=== PATIENT | male | born 1955 | race Caucasian/White ===

== ENCOUNTER 2017-06-19 16:15 | Emergency (ER) | payer MEDICARE ==
[2017-06-19 17:28] LABS: #Basophils 0.1 thou/uL (0.0-0.2); #Eosinphils 0.3 thou/uL (0.0-0.7); #Lymphocytes 1.8 thou/uL (1.20-3.40); #Monocytes 0.6 thou/uL (0.11-0.59); %Eosinophils 5.4 % (0.0-10.0); %Lymphocytes 31.9 % (21.0-51.0); %Monocytes 9.8 % (0.0-10.0); %Neutrophils 51.9 % (42.0-75.0); Mean Corpuscular Hemoglobin 21.9 pg (27.0-31.0); Mean Corpuscular Volume 72.9 fl (80.0-94.0); Mean Platelet Volume 9.1 fL (7.4-10.4); Platelet Count 231 thou/uL (130-400); RBC Distribution Width 15.3 % (11.5-14.5); Red Blood Cell (RBC) Count 5.46 mill/uL (4.70-6.10); White Blood Cell (WBC) Count 5.7 thou/uL (4.8-10.8)
--- NOTE | 2017-06-19 17:35 | RAD ---
ONE VIEW PELVIS 06/19/17 HISTORY: Fall. Pain. COMPARISON: 11/12/07. FINDINGS: Bony pelvis is intact. Sacroiliac joints are patent and symmetric. Sacral ala are preserved. IMPRESSION: Unremarkable one view pelvis. POS: [facility]
--- NOTE | 2017-06-19 17:36 | RAD ---
TWO VIEWS LEFT HIP 06/19/17 COMPARISON: 06/24/15. HISTORY: Fall. Pain. FINDINGS: Two views left hip demonstrates preservation of joint space. Contour of the femoral head is maintaine d. No fracture. IMPRESSION: No fracture. POS: [facility]
[2017-06-19 17:42] LABS: Anisocytosis SLIGHT = 6-15 cells (100X) (0-5/hpf); Hypochromia SLIGHT = 6-15 cells (100X) (0-5/hpf); MDiff Complete? YES; Microcytosis SLIGHT = 6-15 cells (100X) (0-5/hpf); Ovalocytes SLIGHT = 2-5 cells (100X) (0-1/hpf); PLT Morphology Comment Appears Adequate; Polychromasia SLIGHT = 2-3 cells (100X) (0-2/hpf)
[2017-06-19 17:44] LABS: ALT (SGPT) 11 U/L (8-55); AST (SGOT) 16 U/L (5-34); Alkaline Phosphatase 59 U/L (40-150); Anion Gap 11 mmol/L (10-20); BUN (Urea Nitrogen) 16 mg/dL (8.4-25.7); Bilirubin, Total 0.5 mg/dL (0.2-1.2); Calc. Creatinine Clearance 0 mL/min (70-130); Calcium 8.7 mg/dL (7.8-10.44); Carbon Dioxide 24 mmol/L (23-31); Chloride 103 mmol/L (98-107); Estimated GFR-MDRD 63; Globulin 3.2 g/dL (2.4-3.5); Glucose 85 mg/dL (80-115); Potassium 4.3 mmol/L (3.5-5.1); Protein, Total 7.2 g/dL (5.8-8.1); Sodium 134 mmol/L (136-145)
[2017-06-19 17:49] LABS: CKMB 1.1 ng/mL (0-6.6); Troponin I Less than 0.010 ng/mL (< 0.028)
--- NOTE | 2017-06-19 17:52 | RAD ---
CHEST ONE VIEW 06/19/17 HISTORY: Syncope. Possible pacemaker issues. COMPARISON: 11/04/16. FINDINGS: Portable upright chest demonstrates a single lead left sided transvenous pacemaker, with lead positio n unchanged. Normal cardiac silhouette. Atherosclerosis of the aorta. Pulmonary vessels and hilum are normal. Costophrenic angles are clear. No masses or consolidation. No pneumothorax or osseous abnorm alities. IMPRESSION: No acute cardiopulmonary process. POS: [facility]
--- NOTE | 2017-06-26 17:24 | EKG ---
Test Reason : DIAGNOSING PURPOSES Blood Pressure : / mmHG Vent. Rate : 066 BPM Atrial Rate : 064 BPM P-R Int : 000 ms QRS Dur : 166 ms QT Int : 488 ms P-R-T Axes : 000 -87 080 degrees QTc Int : 511 ms Ventricular-paced rhythm Abnormal ECG Confirmed by MAXIMINO SIMMONS, HERIBERTO Umana ([id number]), publication editor LOUIE RAMIREZ ([id number]) on 06/26/2017 5:23:39 PM Referred By: Confirmed By:HERIBERTO STANTON MD
== END 2017-06-19 20:20 | disposition home or self-care (01) ==
LOC: ERS 16:15
DX: S70.02XA Contusion of left hip, initial encounter (principal); I48.91 Unspecified atrial fibrillation; I95.9 Hypotension, unspecified; F17.220 Nicotine dependence, chewing tobacco, uncomplicated; Z79.82 Long term (current) use of aspirin; Z79.899 Other long term (current) drug therapy; W19.XXXA Unspecified fall, initial encounter
CPT/HCPCS: 36415; 71045; 72170; 80053; 82553; 83880; 84484; 85025; 93005; 99406

== ENCOUNTER 2017-07-31 15:27 | Emergency (ER) | payer MEDICARE ==
--- NOTE | 2017-07-31 16:25 | RAD ---
PORTABLE CHEST ONE VIEW 07/31/17 at 3:57 p.m. HISTORY: Chest pain. FINDINGS: Comparison made with exam of 06/19/17. Left sided pacemaker device remains in place. There is continued mild elevation of the right hemidia phragm. The heart size is normal. The lungs are expanded without focal areas of consolidation, pneumo thorax or pleural effusions. IMPRESSION: No radiographic evidence of acute cardiopulmonary process. POS: [facility]
[2017-07-31 16:34] LABS: #Eosinphils 0.2 thou/uL (0.0-0.7); #Lymphocytes 1.7 thou/uL (1.20-3.40); #Monocytes 0.5 thou/uL (0.11-0.59); #Neutrophils 3.6 thou/uL (1.40-6.50); %Basophils 0.5 % (0.0-1.0); %Eosinophils 3.8 % (0.0-10.0); %Lymphocytes 27.8 % (21.0-51.0); %Monocytes 7.9 % (0.0-10.0); %Neutrophils 59.9 % (42.0-75.0); Hemoglobin 11.9 g/dL (14.0-18.0); Mean Corpuscular Hemoglobin 21.4 pg (27.0-31.0); Mean Corpuscular Volume 71.2 fl (80.0-94.0); Mean Platelet Volume 9.3 fL (7.4-10.4); Platelet Count 204 thou/uL (130-400); RBC Distribution Width 16.1 % (11.5-14.5); Red Blood Cell (RBC) Count 5.57 mill/uL (4.70-6.10)
[2017-07-31 16:36] LABS: INR-International Normal Ratio 1.2; PTT 31.8 SEC (22.9-36.1); Prothrombin Time 15.5 SEC (12.0-14.7)
[2017-07-31 16:53] LABS: ALT (SGPT) 11 U/L (8-55); AST (SGOT) 19 U/L (5-34); Albumin 4.1 g/dL (3.4-4.8); Alkaline Phosphatase 56 U/L (40-150); Anion Gap 12 mmol/L (10-20); BUN (Urea Nitrogen) 16 mg/dL (8.4-25.7); Bilirubin, Total 0.5 mg/dL (0.2-1.2); CK (CPK) 91 U/L (30-200); Calc. Creatinine Clearance 0 mL/min (70-130); Carbon Dioxide 26 mmol/L (23-31); Chloride 103 mmol/L (98-107); Estimated GFR-MDRD 63; Globulin 3.2 g/dL (2.4-3.5); Glucose 84 mg/dL (80-115); Lipase 28 U/L (8-78); Potassium 3.6 mmol/L (3.5-5.1); Protein, Total 7.3 g/dL (5.8-8.1); Sodium 137 mmol/L (136-145)
[2017-07-31 16:57] LABS: CKMB 1.2 ng/mL (0-6.6); Troponin I Less than 0.010 ng/mL (< 0.028)
[2017-07-31 20:31] LABS: Troponin I Less than 0.010 ng/mL (< 0.028)
--- NOTE | 2017-08-07 13:12 | EKG ---
Test Reason : Blood Pressure : / mmHG Vent. Rate : 060 BPM Atrial Rate : 214 BPM P-R Int : 000 ms QRS Dur : 168 ms QT Int : 498 ms P-R-T Axes : 000 269 084 degrees QTc Int : 498 ms Poor data quality, interpretation may be adversely affected Electronic ventricular pacemaker Confirmed by EULALIA VINCENT ([id number]), newspaper photo editor SHYAM NIX ([id number]) on 08/07/2017 1:11:56 PM Referred By: Confirmed By:EULALIA VINCENT
--- NOTE | 2017-08-07 13:12 | EKG ---
Test Reason : CP Blood Pressure : / mmHG Vent. Rate : 060 BPM Atrial Rate : 037 BPM P-R Int : 000 ms QRS Dur : 162 ms QT Int : 486 ms P-R-T Axes : 000 261 080 degrees QTc Int : 486 ms Electronic ventricular pacemaker Confirmed by EULALIA VINCENT ([id number]), acquisitions editor SHYAM NIX ([id number]) on 08/07/2017 1:11:55 PM Referred By: DR VINCENT Confirmed By:EULALIA VINCENT
== END 2017-07-31 21:34 | disposition home or self-care (01) ==
LOC: ERS 15:27
DX: R07.89 Other chest pain (principal); I48.91 Unspecified atrial fibrillation; I95.9 Hypotension, unspecified; F17.220 Nicotine dependence, chewing tobacco, uncomplicated; Z79.899 Other long term (current) drug therapy; Z79.82 Long term (current) use of aspirin
CPT/HCPCS: 36415; 71045; 80053; 82553; 83690; 83880; 84484; 85025; 85610; 85730; 93005; 99406

== ENCOUNTER 2017-10-22 11:02 | Observation (INO) | payer MEDICARE ==
--- NOTE | 2017-10-22 11:25 | RAD ---
1 VIEW CHEST: Date: 10/22/17 COMPARISON: 09/27/17. HISTORY: Chest pain. FINDINGS: There is atherosclerosis of aorta. Stable left-sided transvenous pacemaker with lead terminating at r ight ventricle. Normal cardiac silhouette. Pulmonary vessels and hilum are normal. Costophrenic angle s are clear. No consolidation or mass. No pneumothorax or osseous abnormalities. IMPRESSION: No acute cardiopulmonary process. POS: [facility]
[2017-10-22 11:51] LABS: ALT (SGPT) 12 U/L (8-55); AST (SGOT) 23 U/L (5-34); Alkaline Phosphatase 53 U/L (40-150); Anion Gap 9 mmol/L (10-20); BUN (Urea Nitrogen) 16 mg/dL (8.4-25.7); Bilirubin, Total 0.5 mg/dL (0.2-1.2); CK (CPK) 81 U/L (30-200); Calc. Creatinine Clearance 0 mL/min (70-130); Carbon Dioxide 28 mmol/L (23-31); Chloride 103 mmol/L (98-107); Estimated GFR-MDRD 66; Globulin 3.3 g/dL (2.4-3.5); Glucose 73 mg/dL (80-115); Protein, Total 7.3 g/dL (5.8-8.1); Sodium 136 mmol/L (136-145)
[2017-10-22 11:54] LABS: Troponin I Less than 0.010 ng/mL (< 0.028)
[2017-10-22 11:55] LABS: #Eosinphils 0.3 thou/uL (0.0-0.7); #Lymphocytes 1.5 thou/uL (1.20-3.40); #Monocytes 0.4 thou/uL (0.11-0.59); #Neutrophils 2.2 thou/uL (1.40-6.50); %Eosinophils 5.9 % (0.0-10.0); %Lymphocytes 34.3 % (21.0-51.0); %Neutrophils 49.9 % (42.0-75.0); Anisocytosis SLIGHT = 6-15 cells (100X) (0-5/hpf); Hypochromia SLIGHT = 6-15 cells (100X) (0-5/hpf); MDiff Complete? YES; Mean Corpuscular HGB CONC 29.7 g/dL (32.0-36.0); Mean Corpuscular Hemoglobin 21.5 pg (27.0-31.0); Mean Corpuscular Volume 72.4 fl (80.0-94.0); Mean Platelet Volume 9.6 fL (7.4-10.4); Microcytosis SLIGHT = 6-15 cells (100X) (0-5/hpf); Platelet Count 214 thou/uL (130-400); RBC Distribution Width 15.4 % (11.5-14.5); Red Blood Cell (RBC) Count 5.12 mill/uL (4.70-6.10); White Blood Cell (WBC) Count 4.4 thou/uL (4.8-10.8)
[2017-10-22] MEDS ORDERED: Nitroglycerin 2% Ointment 1 INCH/1 GM Packet ONE (14:07)
[2017-10-22 14:22] LABS: Troponin I Less than 0.010 ng/mL (< 0.028)
[2017-10-22] MEDS ORDERED: Ondansetron PF 4 MG/2 ML Vial IVP PRN (16:25)
[2017-10-22] MEDS ORDERED: Ondansetron ODT 4 MG TAB SL PRN (16:25)
[2017-10-22] MEDS ORDERED: Acetaminophen 325 MG TAB PO PRN ×2 (16:25→16:29)
[2017-10-22] MEDS ORDERED: Nitroglycerin 0.4 MG TAB (25 Tab Bottle) PO PRN (16:29)
[2017-10-22 16:54] VITALS: BMI 31.1
[2017-10-22] MEDS ORDERED: hydrALAZINE 20 MG/ML VIAL SLOW IVP PRN (17:31)
[2017-10-22 17:45] LABS: Troponin I Less than 0.010 ng/mL (< 0.028)
--- NOTE | 2017-10-22 18:11 | HP ---
DATE OF ADMISSION: 10/22/2017 CHIEF COMPLAINT: Chest pain. HISTORY OF PRESENT ILLNESS: This is a 62-year-old white male with known history of pacemaker placeme nt and since then he has recently been to custodial at [place] where he was asked to pass through a magne tic chamber and his pacemaker has been giving problems since then according to him and patient has be en following up with sedimentationist, Dr. Montalvo. He happened to be there today and had a 2D echo and he said he was told by the advertising layout worker to go to the ER as patient was not feeling well while t he patient was getting the echo done. He came to the ER with persistent chest pain and he was given nitro pills which did eased up his chest pain. His initial troponins were negative and patient was b eing admitted for further evaluation. The patient was seen in the floor, he was alert and oriented, did not appear to be in acute distress at this time, but is very worried about his chest pains and he feels it is coming from the pacemaker. He has an appointment with his database software technician on Wednesday for further interrogation of his pacemaker. PAST MEDICAL HISTORY: 1. Atrial fibrillation. 2. Tachybrady syndrome, status post pacemaker in 2014. 3. Chronic back pain. 4. History of electrocution with salgado to his left side. 5. History of anxiety disorder. 6. History of orthostatic hypotension. PAST SURGICAL HISTORY: 1. Pacemaker placement in 2014. 2. Back surgery. ALLERGIES: DIGOXIN. SOCIAL HISTORY: He denies smoking. No history of alcohol, no history of illicit drug use. He lives with his in [place]. FAMILY HISTORY: Positive for stroke. Not known, which family member, but otherwise no cancers in th e family. REVIEW OF SYSTEMS: All 12 systems are reviewed with the patient thoroughly and found to be negative at this time. The following complete review of systems was negative, unless otherwise mentioned in t he HPI or below: Constitutional: Weight loss or gain, sense of well-being, ability to conduct usual activities, exerc ise tolerance. Skin/Breast: Rash, itching, changes in hair growth or loss, nail changes, breast lumps, tenderness, swelling, nipple discharge. Eyes: Vision, double vision, tearing, blind spots, pain. ENT/Mouth: Headaches (location, time of onset, duration, precipitating factors), vertigo, lightheadedness, injury. Vision, double vision, tearing, blind spots, pain, nose b leeding, colds, obstruction, discharge, dental difficulties, gingival bleeding, dentures, neck stiffn ess, pain, tenderness, masses in thyroid or other areas Cardiovascular: Precordial pain, substernal distress, palpitations, syncope, dyspnea on exertion, or thopnea, nocturnal paroxysmal dyspnea, edema, cyanosis, hypertension, heart murmurs, varicosities, ph lebitis, claudication. Respiratory: Pain, shortness of breath, wheezing, stridor, cough, hemoptysis, fever or night sweats Gastrointestinal: Poor appetite, dysphagia, indigestion, abdominal pain, heartburn, eructation, naus ea, vomiting, hematemesis, jaundice, constipation, or diarrhea, abnormal stools (cesilia-colored, tarry, bloody, greasy, foul smelling), flatulence, hemorrhoids, recent changes in bowel habits. Genitourinary: Urgency, frequency, dysuria, nocturia, hematuria, polyuria, oliguria, unusual (or preethi nge in) color of urine, stones, hesitancy, change in size of stream, dribbling, acute retention or in continence, libido, potency. Musculoskeletal: Pain, swelling, redness or heat of muscles or joints, limitation, of motion, muscular weakness, atrophy, cramps. Neurologic/Psychiatric: Convulsions, paralyses, tremor, incoordination, parasthesias, difficulties w ith memory of speech, sensory or motor disturbances, or muscular coordination (ataxia, tremor), emoti onal problems, anxiety, depression, previous psychiatric care, unusual perceptions, hallucinations. Allergy/Immunologic: Skin rash, anemia, bleeding tendency, polydipsia, polyuria, intolerance to heat or cold. HOME MEDICATIONS: Clonazepam 1 mg p.o. daily, hydrocodone 1 tablet p.o. q.6 hours, metoprolol 100 mg p.o. daily, meloxicam 7.5 mg p.o. at bedtime, aspirin 325 mg p.o. daily, and ropinirole 1 mg p.o. at bedtime. PHYSICAL EXAMINATION: VITAL SIGNS: Blood pressure is 173/102, heart rate 61, respiration rate 16, saturation 98%. GENERAL: The patient is moderately built and moderately nourished, does not appear to be in acute di stress at this time. HEENT: Atraumatic, normocephalic. PERRLA. Extraocular movements were intact. Oral mucosa is pink and moist. CARDIOVASCULAR: S1 and S2 normal. No murmurs, rubs or gallops. LUNGS: Bilateral air entry was equal, no wheezing, no crackles. ABDOMEN: Soft, nontender. No guarding or rebound tenderness. Bowel sounds normal. MUSCULOSKELETAL: No calf tenderness. No pedal edema. No joint tenderness. No joint swelling. PSYCHIATRIC: No symptoms of suicidal ideation and no signs of kal was noted. LABORATORY DATA: WBC 4.4, hemoglobin is still 11.1, hematocrit of 37.1. Sodium 133, potassium 4.0, chloride 103, bicarbonate 28, BUN 16, creatinine 1.12. ASSESSMENT AND PLAN: 1. Acute chest pain. 2. History of atrial fibrillation. 3. History of pacemaker dysfunction. 4. Moderate dehydration. PLAN: 1. Plan is to closely monitor this patient as serial troponins x2 were negative. He continues to co mplain of chest pain and patient is started on nitro paste and we will closely monitor this patient. The patient has been sent from Dr. Montalvo's office and had 2D echo. According to the patient, had an abnormal echo, but echo is not available at this time to read, so I will consult Cardiology, Dr. Montalvo for further evaluation. 2. The patient has a history of atrial fibrillation. His rhythm is normal at this time and has a pa saskia rhythm at this time. The patient is requesting for electrophysiology consultation but I would le ave this for Dr. Montalvo. 3. The patient has markedly elevated blood pressure. We will start the patient on hydralazine 10 mg q.6 hours for systolic more than 160. 4. DVT prophylaxis on Lovenox. I spent 75 minutes with this patient.
[2017-10-22] MEDS: Carvedilol 3.125 MG TAB PO SCH (20:23)
[2017-10-22] MEDS ORDERED: Fludrocortisone Acetate 0.1 MG TAB PO SCH (21:00)
[2017-10-22] MEDS ORDERED: rOPINIRole HCl 1 MG TAB PO SCH (21:00)
[2017-10-22] MEDS: HYDROcodone/Acetaminophen 5/325 mg Tablet PO PRN (22:35)
[2017-10-23 04:34] LABS: #Basophils 0.1 thou/uL (0.0-0.2); #Eosinphils 0.3 thou/uL (0.0-0.7); #Lymphocytes 2.1 thou/uL (1.20-3.40); #Monocytes 0.5 thou/uL (0.11-0.59); #Neutrophils 2.7 thou/uL (1.40-6.50); %Basophils 1.2 % (0.0-1.0); %Eosinophils 5.2 % (0.0-10.0); %Lymphocytes 36.9 % (21.0-51.0); %Monocytes 8.3 % (0.0-10.0); %Neutrophils 48.4 % (42.0-75.0); Hemoglobin 10.7 g/dL (14.0-18.0); Mean Corpuscular HGB CONC 30.3 g/dL (32.0-36.0); Mean Corpuscular Hemoglobin 21.7 pg (27.0-31.0); Mean Corpuscular Volume 71.5 fl (80.0-94.0); Platelet Count 199 thou/uL (130-400); Red Blood Cell (RBC) Count 4.95 mill/uL (4.70-6.10); White Blood Cell (WBC) Count 5.6 thou/uL (4.8-10.8)
[2017-10-23 04:47] LABS: Anion Gap 10 mmol/L (10-20); BUN (Urea Nitrogen) 14 mg/dL (8.4-25.7); Calc. Creatinine Clearance 98 mL/min (70-130); Calcium 8.7 mg/dL (7.8-10.44); Carbon Dioxide 27 mmol/L (23-31); Cardiac Risk 4.5 (Less than 4.5); Chloride 103 mmol/L (98-107); Cholesterol 140 mg/dl (< 200 Desired); Estimated GFR-MDRD 73; Glucose 87 mg/dL (80-115); HDL Cholesterol 31 mg/dL (>60 Neg Risk); LDL Cholesterol, Calculated 91 mg/dL; Potassium 3.5 mmol/L (3.5-5.1); Sodium 136 mmol/L (136-145); Triglycerides 89 mg/dL (Less than 150)
[2017-10-23] MEDS: HYDROcodone/Acetaminophen 5/325 mg Tablet PO PRN (07:14)
[2017-10-23] MEDS: Carvedilol 3.125 MG TAB PO SCH (08:06)
[2017-10-23] MEDS ORDERED: Aspirin 325 MG TAB PO SCH ×2 (09:00)
[2017-10-23] MEDS ORDERED: Enoxaparin Sodium 40 MG/0.4 ML SYRINGE SC SCH (09:00)
--- NOTE | 2017-10-23 14:16 | NM ---
CARDIAC SPECT: CLINICAL HISTORY: 62-year-old male with chest pain, atrial fibrillation. TECHNIQUE: A myocardial perfusion scan was performed using the single isotope one day protocol with technetium-9 9m sestamibi. 11 mCi were injected intravenously for the rest exam followed by 32 mCi for the stress exam. Pharmacologic stress with Adenosine was monitored and interpreted by Dr. Abraham. FINDINGS: Homogeneous tracer distribution is seen in the myocardial segments on stress and rest images without fixed or reversible defects. GATED SPECT LVEF: 56%. WALL MOTION EXAM: Normal. IMPRESSION: Normal myocardial perfusion scan. POS: [facility]
[2017-10-23] MEDS ORDERED: ADENOSINE 60 MG/20 ML VIAL ONE (15:25)
[2017-10-23 16:10] VITALS: BP 156/94; TEMP 98.3
--- NOTE | 2017-10-23 20:14 | CON ---
DATE OF CONSULTATION: 10/23/2017 REASON FOR CONSULTATION: Chest pain. HISTORY OF PRESENT ILLNESS: Mr. Capps is a pleasant 62-year-old white gentleman who comes to the [facility] for chest pain. He has been having this chest pain since around his pacemaker site since had his [facility]. He has had this discomfort since then. He has seen Dr. Montalvo since then and noted that he had normal pacer function. He went to our [facility] to get an echocardiogram on Wednesday and he complained about chest pain. He was advised that if he continued to have chest pain, he needed to come to the ER, so he did. He was admitted for rule out. He is a very poor history group tester. He is not able to tell me about any pain except he said there are 2 different types of pain. He said there is a pain around the pacemaker, but there is also pain radha t he gets a headache for him. He also mentions something about having some pressure sensation. Yest erday that got better with the nitro that he was given. He had a nuclear stress test done earlier to day and it showed no reversible ischemia and normal LV function. PAST MEDICAL HISTORY: 1. History of atrial fibrillation. 2. Tachybrady syndrome, status post pacemaker in 2014. 3. Chronic back pain. 4. History of electrocution in the past. 5. Anxiety disorder. 6. Orthostatic hypertension. PAST SURGICAL HISTORY: 1. Pacemaker placement. 2. Back surgery. OUTPATIENT MEDICATIONS: Include: 1. Vicodin p.r.n. for pain. 2. Requip. 3. Clonazepam. 4. Meloxicam. 5. Aspirin 325 a day. 6. Metoprolol 100 mg a day. 7. . 8. Florinef. 9. Albuterol inhaler. ALLERGIES: DIGOXIN. SOCIAL HISTORY: No alcohol, tobacco or drugs. FAMILY HISTORY: Noncontributory. REVIEW OF SYSTEMS: A 12-point review of systems was done and is all negative unless stated in the hi story of present illness. PHYSICAL EXAMINATION: VITAL SIGNS: Temperature 98.3, pulse 66, respiration rate 12, satting 98% on room air, blood pressur e 156/94. GENERAL: Awake, alert, oriented x3, in no distress. HEENT: Normocephalic, atraumatic. NECK: Supple. LUNGS: Clear. CARDIOVASCULAR: S1, S2, no S3, S4, no murmurs or rubs. ABDOMEN: Soft with bowel sounds. EXTREMITIES: No edema. SKIN: Warm and dry. LABORATORY WORK: Reviewed. Troponins are completely undetectable. CBC is unremarkable except for h emoglobin 11.0 down to 10.7 this morning, white count of 5.6, platelet count is normal. Nuclear stress test was done earlier today and it showed normal LV function with no reversible ischem ia. Echocardiogram done in the office on Wednesday afternoon was reviewed as well. Official report is still pending, but on my review, he has got normal LV function with no regional wall motion abnormalities. No major valvular abnormalities. There is biatrial enlargement with a pacemaker lead seen on right -sided chambers. ASSESSMENT AND PLAN: Chest pain: He has tenderness upon palpation of the pacer site. This is most likely part of the reason he is having pain. He also has pain in his chest when he gets really upset . On my evaluation, he was upset even when I walked without knowing whom I was. He did not want to give me much history. He just said you probably going to send me home, just give me my paper works a nd get me on my way from my outside. I asked him what that he expect from us and he said I do not want to agree with you. I just want to sign my paperwork and go out and wait for my to come and pick me up. I requested that he be placed on a PPI and will have him see. He has got an a ppointment with Dr. Montalvo in the next few weeks. If his chest pain continues, he may need a heart catheterization at that time. Currently, he is not having an acute coronary syndrome. It should be safe for him to go home. Thank you for letting us participate in the care of your patient. We will sign off. Please call malia metz any questions.
--- NOTE | 2017-10-25 11:11 | DIS ---
DATE OF ADMISSION: 10/22/2017 DATE OF DISCHARGE: 10/23/2017 ADMITTING DIAGNOSIS: Acute chest pain. DISCHARGE DIAGNOSIS: Acute chest pain. SECONDARY DIAGNOSES: 1. Atrial fibrillation. 2. Tachybrady syndrome, status post pacemaker in 2014. 3. Anxiety disorder, orthostatic hypotension. CONSULTANTS INVOLVED IN THE CARE: Dr. Abraham. PROCEDURES DONE DURING THIS ADMISSION: Nuclear stress test. HISTORY OF PRESENT ILLNESS AND HOSPITAL COURSE: In brief, this is a 62-year-old white male with a kn own history of a pacemaker placement and he has recently been to intermediate and he was asked to pass through the magnetic chamber and his pacemaker not been giving problems since then. According to him , the patient has been following up with a roll builder, Dr. Montalvo. He happened to be here today and had a 2D echo and he was told by the to go to the ER as the patient was not feeling well. The patient will get an echo done. He came to the ER and had persistent chest pain. The patient has been told he was alert and oriented, did not appears to be in any acute distress. The patient was s een by Cardiology and suggested for nuclear stress test the following day. Nuclear stress test was done per recommendation of the Cardiology, which showed a normal myocardial p erfusion scan. The patient was discharged to home in stable condition. PHYSICAL EXAMINATION: On date of discharge: VITAL SIGNS: Blood pressure is 156/94, heart rate is 66, respiratory rate is 12, and saturation 98%. CARDIOVASCULAR: S1 and S2 normal. No murmurs, rubs, or gallops. LUNGS: Bilateral air entry were equal. No wheezing, no crackles. ABDOMEN: Soft, nontender. No guarding. MUSCULOSKELETAL: No calf tenderness. No pedal edema. No joint tenderness, no joint swelling. DISCHARGE MEDICATIONS: 1. Albuterol inhaler. 2. Aspirin 325 mg p.o. daily. 3. Clonazepam 1 mg p.o. daily. 4. Hydrocodone. 5. Meloxicam 7.5 mg p.o. at bedtime. 6. Metoprolol 100 mg p.o. daily. 7. Ropinirole 1 mg p.o. at bedtime. DISCHARGE INSTRUCTIONS: 1. Continue activity as tolerated. Advised to follow up with his primary care physician in 1 week. Advised to follow up with primary roll builder, Dr. Eriberto Montalvo in 2 to 3 weeks. 2. Continue with a cardiac diet and continue activity as tolerated. I spent less than 35 minutes with the patient on the day of discharge.
--- NOTE | 2017-12-04 19:56 | EKG ---
Test Reason : Blood Pressure : / mmHG Vent. Rate : 061 BPM Atrial Rate : 357 BPM P-R Int : 000 ms QRS Dur : 162 ms QT Int : 502 ms P-R-T Axes : 000 -83 080 degrees QTc Int : 505 ms Electronic ventricular pacemaker Confirmed by MEHRAN CHANEY ([id number]), index editor SHYAM NIX ([id number]) on 12/04/2017 7:55:39 PM Referred By: Confirmed By:MEHRAN CHANEY
--- NOTE | 2017-12-22 08:07 | STRESS ---
Acquisition Time: 2017-10-23 10:24:37 Total Exercise Time: 00:04:00 Test Indications: CHEST PAIN Medications: Protocol: ADENOSINE Max HR: 070 BPM 44% of Pred: 158 BPM Max BP: 140/100 mmHG Max Work Load: 1.0 METS RESTING ECG: V-PACED AT 65 BPM WITH UNDERLYING ATRIAL FIBRILLATION SYMPTOMS: HEADACHE NORMAL BP RESPONSE ECTOPY: NONE ECG STRESS: NO SIGNIFICANT CHANGES INTERPRETATION: INDETERMINATE ECG/AWAIT NUCLEAR IMAGES FOR DEFINITIVE DIAGNOSIS Confirmed by LISA DALE M.D. ([id number]) on 12/22/2017 8:06:55 AM Referred By: MD Jade BYNUM Confirmed By:LISA DALE M.D.
== END 2017-10-23 17:32 | disposition home or self-care (01) ==
LOC: ERS 11:02 → 2SW 14:32
PROVIDERS: ADMIT Family Medicine; ATTEND Family Medicine
DX: R07.9 Chest pain, unspecified (principal); I48.91 Unspecified atrial fibrillation; E86.0 Dehydration; Z88.2 Allergy status to sulfonamides; Z79.82 Long term (current) use of aspirin; Z79.899 Other long term (current) drug therapy
CPT/HCPCS: 71045; 78452; 80048; 80053; 80061; 82550; 82553; 84484 ×2; 85025 ×2; 93005; 93017; 94760; 99285; A9500; G0378; 36415; J0153

== ENCOUNTER 2017-11-08 05:30 | Day surgery (SDC) | payer MEDICARE ==
[2017-11-08 06:43] LABS: #Basophils 0.1 thou/uL (0.0-0.2); #Eosinphils 0.2 thou/uL (0.0-0.7); #Monocytes 0.4 thou/uL (0.11-0.59); #Neutrophils 1.7 thou/uL (1.40-6.50); %Basophils 1.2 % (0.0-1.0); %Eosinophils 5.5 % (0.0-10.0); %Monocytes 9.9 % (0.0-10.0); %Neutrophils 38.4 % (42.0-75.0); Hemoglobin 11.6 g/dL (14.0-18.0); Mean Corpuscular HGB CONC 30.3 g/dL (32.0-36.0); Mean Corpuscular Hemoglobin 21.9 pg (27.0-31.0); Mean Corpuscular Volume 72.1 fl (80.0-94.0); Mean Platelet Volume 9.3 fL (7.4-10.4); Platelet Count 179 thou/uL (130-400); RBC Distribution Width 15.3 % (11.5-14.5); Red Blood Cell (RBC) Count 5.29 mill/uL (4.70-6.10); White Blood Cell (WBC) Count 4.4 thou/uL (4.8-10.8)
[2017-11-08] MEDS ORDERED: CEFAZOLIN/Water 2 GM/20 ML SYRINGE ONE (06:43)
[2017-11-08] MEDS ORDERED: Lidocaine 1% (PF) 30 ML VIAL ONE ×2 (06:55)
[2017-11-08 06:56] LABS: ALT (SGPT) 10 U/L (8-55); AST (SGOT) 17 U/L (5-34); Albumin 4.1 g/dL (3.4-4.8); Alkaline Phosphatase 56 U/L (40-150); Anion Gap 10 mmol/L (10-20); BUN (Urea Nitrogen) 16 mg/dL (8.4-25.7); Bilirubin, Total 0.6 mg/dL (0.2-1.2); Calc. Creatinine Clearance 0 mL/min (70-130); Carbon Dioxide 33 mmol/L (23-31); Chloride 100 mmol/L (98-107); Estimated GFR-MDRD 67; Globulin 3.3 g/dL (2.4-3.5); Glucose 79 mg/dL (80-115); Potassium 3.5 mmol/L (3.5-5.1); Protein, Total 7.4 g/dL (5.8-8.1); Sodium 139 mmol/L (136-145)
[2017-11-08] MEDS ORDERED: Fentanyl 100 MCG/2 ML VIAL ONE (07:29)
[2017-11-08] MEDS ORDERED: Propofol 500 MG/50 ML VIAL ONE (07:29)
[2017-11-08 08:00] LABS: INR-International Normal Ratio 1.2; PTT 34.9 SEC (22.9-36.1); Prothrombin Time 15.1 SEC (12.0-14.7)
[2017-11-08] MEDS ORDERED: Heparin 10,000 UNITS/1 ML VIAL ONE (09:04)
[2017-11-08] MEDS ORDERED: DOPamine 400 MG/D5W 250 ML 250 ML ONE (09:04)
[2017-11-08] MEDS ORDERED: PROPOFOL 40 ML ONE (09:25)
[2017-11-08] MEDS ORDERED: PROPOFOL 200 MG/20 ML VIAL ONE (10:35)
[2017-11-08] MEDS ORDERED: Lidocaine 1% PF 5 ML VIAL ONE (10:35)
--- NOTE | 2017-11-08 12:48 | RAD ---
PORTABLE AP CHEST XRAY: DATE: 11/08/17. HISTORY: Post pacemaker upgrade, atrial fibrillation, ablation. COMPARISON: 10/22/17. FINDINGS: There has been interval revision of the patient's left subclavian cardiac pacemaking device with a co ronary sinus lead placed in the interim when compared to the prior exam. There is no evidence of a p neumothorax or pleural effusion. Cardiac silhouette is magnified by projection. Pulmonary vasculatu re is within normal limits. The lungs are clear. Vascular calcification seen in the thoracic aorta. IMPRESSION: Interval revision of left subclavian pacemaking device as described above. No pneumothorax is visual ized. POS: [facility]
--- NOTE | 2017-11-09 08:57 | OP ---
DATE OF SERVICE: 11/08/2017 ELECTROPHYSIOLOGY STUDY AND RADIOFREQUENCY ABLATION REPORT. REFERRING PHYSICIAN: Dr. Montalvo. REASON FOR PROCEDURE: Mr. Capps is a 62-year-old man with history of chronic atrial fibrillation wi th occasional RVR, also frequent RV pacing though and dyspnea associated with that. He had prior pac ing implantation in 2014 for tachybrady syndrome by Dr. Montalvo. He is here for even ablation and f or a plan for biventricular pacemaker upgrade. DESCRIPTION OF PROCEDURE: The patient received deep sedation by Anesthesia specialist. After adequa te level of sedation achieved, the right femoral venous area was prepped, draped and anesthetized usi ng subcutaneous lidocaine. Under ultrasound guidance, the right femoral vein was accessed with a mul tipurpose needle and an 8-Bengali short sheath was introduced. Through this, a ThermoBOND SF bidirect ional catheter was advanced to the right atrium. The His bundle was located with fluoroscopy and ron ctrograms. The was measured to be 63 milliseconds. Following that, the AV maya ablatio n was performed eliminating AV maya conduction. Residual junctional escape rhythm was seen at 40 be ats per minute. Following that, the pacemaker was reprogrammed again to 50 beats per minute. Dopami ne was started to assess the patency of the block. Following that, the catheter was used to assist location of CS as well as the patency of the le ft subclavian vein. CONCLUSION: 1. Successful AV maya ablation. 2. Patent subclavian and CS veins. 3. Plan is to proceed with a biventricular pacemaker upgrade.
== END 2017-11-08 14:35 | disposition home or self-care (01) ==
LOC: CCL 05:30
PROVIDERS: ATTEND Internal Medicine Cardiovascular Disease
DX: I48.2 Chronic atrial fibrillation (principal); Z88.8 Allergy status to other drugs, medicaments and biological substances; Z79.899 Other long term (current) drug therapy; Z79.82 Long term (current) use of aspirin
CPT/HCPCS: 33225; 36005; 71045; 75820; 76942; 80053; 85025; 85610; 85730; 93005; 93650; C1769; C1882; C1900; C2630; 93010; J1265; J1644; J2001; J2704; J3010; J3490

== ENCOUNTER 2018-06-27 10:24 | Outpatient (CLI) | payer MEDICARE ==
--- NOTE | 2018-06-27 12:05 | CT ---
CT OF THE LUMBAR SPINE: Date: 06/27/18 COMPARISON: None. HISTORY: M51.27 other intervertebral disc displacement, lumbosacral region. TECHNIQUE: Axial CT imaging at 2 mm intervals through the lumbar spine without contrast. Coronal and sagittal re formatted imaging obtained. FINDINGS: Evaluation for central canal and/or neural foraminal stenosis is limited on routine CT exam. Imaged r etroperitoneal structures appear grossly unremarkable. There is mild atherosclerotic calcification of the pelvic arterial structures, left greater than right. Sagittal imaging demonstrates no significant anterolisthesis or retrolisthesis. There is mild anterol isthesis of L4 on L5 measuring in the 3-4 mm range. T12-L1: No osseous cause of significant central canal or neural foraminal stenosis. L1-2: Mild bilateral facet hypertrophy and mild disc space narrowing. No osseous cause of significan t central canal or neural foraminal stenosis. L2-3: There is disc space narrowing and mild bilateral facet hypertrophy. No significant central can al or neural foraminal stenosis on the basis of an osseous abnormality. There is an area of irregular ity involving the anterior aspect of the superior end plate of the L3 vertebral body suggesting a rem ote fracture or a prominent Schmorl's node. L3-4: Bilateral facet hypertrophy and hypertrophy of the ligamentum flavum. No osseous cause of sign ificant central canal or neural foraminal stenosis. Mild bilateral facet hypertrophy with probable mi ld bilateral neural foraminal stenosis. L4-5: Disc space narrowing and mild disc bulge suspected. Prominent bilateral facet hypertrophy, lef t greater than right. Moderate central canal stenosis suspected. Moderate bilateral neural foraminal stenosis suspected as well, left greater than right. L5-S1: Disc space narrowing and vacuum disc formation noted. Mild posterior osteophyte formation, bi lateral facet hypertrophy, right greater than left. Moderate right neural foraminal stenosis. No sign ificant central canal or left neural foraminal stenosis. No acute fracture or dislocation. No worriso me lytic or blastic bone lesion. IMPRESSION: Multilevel degenerative change noted within the lumbar spine, most prominent at L4-5 and L5-S1 as daria cribed above. POS: [facility]
--- NOTE | 2018-06-27 12:19 | CT ---
CERVICAL SPINE CT WITHOUT CONTRAST: DATE: 06/27/2018. COMPARISON: 08/06/2014. HISTORY: Intervertebral disk displacement. TECHNIQUE: Axial CT imaging at 2 mm intervals from the skull base through the lung apices without contrast. Cor onal and sagittal reformatted imaging obtained. FINDINGS: Evaluation for central canal and/or neural foraminal stenosis is limited on routine CT. The C1 ring is intact. There is moderate degenerative change at the atlantoaxial interspace, stable. The craniocervical junction and cervicothoracic junction are intact. No prevertebral soft tissue s welling. No anterolisthesis or retrolisthesis is noted. C2-3: Mild bilateral uncovertebral osteophyte formation, right greater than left. No osseous cause of significant central canal or neural foraminal stenosis. C3-4: Mild disk space narrowing. Mild bilateral uncovertebral osteophyte formation, right greater t guidry left. Mild right neural foraminal stenosis. No significant central canal or left neural foramin al stenosis. C4-5: There is disk space narrowing and degenerative end plate change with posterior osteophyte form ation, worsened when compared to the prior exam. Moderate central canal stenosis is suspected with a probable superimposed disk bulge. Bilateral facet and uncovertebral osteophyte formation are presen t with moderate bilateral neural foraminal stenosis, left greater than right, slightly worsened when compared to prior imaging. C5-6: There is disk space narrowing. There is bilateral uncovertebral osteophyte formation, left gr eater than right. There is moderate left neural foraminal stenosis. There is a questionable disk bu lge with at least mild central canal stenosis. C7-T1: No osseous cause of significant central canal and neural foraminal stenosis. No acute osseous abnormality. No prevertebral soft tissue swelling. IMPRESSION: Multilevel degenerative change noted within the cervical spine as detailed above. More definitive as sessment for central canal and/or neural foraminal stenosis could be performed via MRI or CT myelogra m. POS: [facility]
== END 2018-06-27 10:25 | disposition home or self-care (01) ==
LOC: SCSCT 10:24
PROVIDERS: ATTEND Psychiatry & Neurology Neurology
DX: M51.27 Other intervertebral disc displacement, lumbosacral region (principal); M47.812 Spondylosis without myelopathy or radiculopathy, cervical region; M47.816 Spondylosis without myelopathy or radiculopathy, lumbar region; M47.817 Spondylosis without myelopathy or radiculopathy, lumbosacral region
CPT/HCPCS: 72125; 72131

== ENCOUNTER 2018-08-25 07:36 | Day surgery (SDC) | payer MEDICARE ==
[2018-08-24 11:43] VITALS: BMI 26.2
--- NOTE | 2018-08-25 08:40 | RAD ---
FEXAM:Cervical spine 3 views HISTORY: Neck pain COMPARISON: None FINDINGS:The vertebral bodies are normal in height and there is marked disc narrowing at C5-6 and mil d disc narrowing at C6-7. No abnormal motion in flexion or extension. Degenerative facet changes are present. IMPRESSION:Arthritic changes of the lower cervical spine.
--- NOTE | 2018-08-25 08:48 | RAD ---
3 VIEWS LUMBAR SPINE INCLUDING LATERAL AND FLEXION AND EXTENSION VIEWS: Date: 08/25/18 HISTORY: Intervertebral disc displacement. FINDINGS: Three views lumbar spine are obtained and compared to previous exam from 11/12/07. There is Grade I anterolisthesis of L4 on L5. This degree of anterolisthesis increases on flexion vie ws. On extension views, the degree of anterolisthesis is approximately 3.0 mm. This increases to 9.5 mm on the flexion view. There is disc space height loss at the L4-5 disc space. Findings suggest L4-5 facet instability. Vacuum changes seen at L5-S1. There is irregularity and partial collapse of the superior anterior aspect of the L3 vertebral body. This was seen on the patient's previous radiograph from 11/12/07. This is not significantly changed. IMPRESSION: Instability and anterolisthesis of L4 on L5. POS: [facility]
--- NOTE | 2018-08-25 09:47 | RAD ---
FCT ABDOMEN AND PELVIS WITH CONTRAST COMPARISON: CLINICAL INDICATION: History of malignancy, metastases, pain FINDINGS: Lung bases: Prominent abnormality of the imaged right lower chest, correlate with recent CT chest exa m from previous day for intrathoracic pathology details. Solid abdominal organs: Distention of gallbladder. Small masses are seen within the bilateral adrenal glands. Bowel: No acute bowel distention or inflammation. Vasculature: Scattered vascular disease. Lymph nodes: Multiple enlarged retroperitoneal lymph nodes. Small, 1.1 cm, soft tissue nodule is seen at the posterior left abdomen, posterior to the left pararenal space, likely represents a metastatic deposit. Free fluid/free air. No free air. Mild pelvic ascites is present Urinary bladder: Unremarkable. Osseous structures: Diffuse osseous metastatic disease of the visualized spine as well as within the pelvic osseous structures. There are predominantly lytic osseous lesions demonstrated. Findings have depicted on preceding exams. IMPRESSION: Diffuse metastatic disease primarily involving osseous structures; in addition there are abnormal lymph nodes as well as bilateral adrenal masses of the abdomen. Incompletely assessed disease of the lower chest has been documented on preceding CT thorax.
--- NOTE | 2018-08-25 10:04 | CT ---
FCT cervical myelogram INDICATION: History of cervical stenosis TECHNIQUE: CT images were obtained of the cervical spine following intrathecal administration of a Is ovue solution. Please see the separate dictated remodeling or for details concerning the injection te chnique. FINDINGS: The prevertebral soft tissues appear within normal limits. The lung apices are clear. There is moderate disc degenerative disease at C4-5 and C5-6. Craniocervical junction appears within normal limits. At C2-C3, there is no appreciable osseous central canal or neural foraminal narrowing. There is moder ate left facet joint degenerative change. At C3-4, there is uncovertebral atrophy and [id number] facet joint degenerative changes inducin g moderate right and mild left osseous neural foraminal narrowing. At C4-5, there is disc osteophyte complex with uncovertebral hypertrophy and facet joint degenerative changes inducing mild bilateral osseous neural foraminal narrowing and mild central canal narrowing. At C5-6, there is a broad-based disc osteophyte complex and facet hypertrophy but no appreciable cent ral canal or neural foraminal narrowing. At C6-7, there is uncovertebral hypertrophy and facet joint degenerative change but no appreciable ce ntral canal or neural foraminal narrowing. At C7-T1, there is no appreciable central canal or neural foraminal narrowing. IMPRESSION: 1. Mild spondylosis of the cervical spine most pronounced at C4-5, were there is a central canal and neural foraminal narrowing. 2. Moderate right and mild left neural foraminal narrowing at C3-4.
--- NOTE | 2018-08-25 10:31 | CT ---
FCT lumbar myelogram: INDICATION: Disc displacement. TECHNIQUE: Multiple CT images were obtained of the lumbar spine following intrathecal administration of an Isovue solution. Please see the separately dictated lumbar myelogram for details concerning the injection technique. COMPARISON: No MRI or myelogram comparisons are available. There was a recent CT of the lumbar spine performed on 06/27/2018 which was reviewed. FINDINGS: There is a 4 mm non obstructing calculus involving the inferior pole of the left kidney. There are ad ditional sub-4 mm calculi involving the right and left kidney. The visualized retroperitoneum and par avertebral soft tissues appear within normal limits. A few shotty appearing lymph nodes are seen with in the retroperitoneum, none of which are pathologically enlarged. There is a limbus type vertebra involving L3 which is stable to the most recent comparison CT evaluat ion. There is mild degenerative arthrosis involving both SI joints. There is a broad-based disc osteophyte complex and facet hypertrophy at L5-S1 inducing moderate right and mild left neural foraminal narrowing. At L4-5, there is advanced facet joint degenerative change and grade 1 anterolisthesis. Anterolisthes is in addition to a broad-based disc bulge and facet hypertrophy induces moderate central canal narro wing with moderate to severe bilateral neural foraminal narrowing. At L3-4, there is a broad-based bulge with facet hypertrophy inducing moderate bilateral neural destinee inal narrowing. At L2-3, there is mild broad-based bulge with facet hypertrophy producing mild bilateral neural destinee inal narrowing. At L1-L2, there is mild broad-based bulge with mild bilateral neural foraminal narrowing. At T12-L1, there is no appreciable central canal or neural foraminal narrowing. IMPRESSION: 1. Multilevel spondylosis of the lumbar spine with moderate central canal narrowing and moderate to s evere bilateral neural foraminal narrowing at L4-5. There is grade 1 anterolisthesis of L4 and L5 lik royer related to the patient's advanced facet joint degenerative change. 2. Advanced disc degenerative disease at L5-S1 with moderate right and mild left neural foraminal estiven rowing. 3. Moderate bilateral neural foraminal narrowing at L3-4. 4. Mild bilateral neural foraminal narrowing at L1-2 and L2-3. 5. Bilateral nephrolithiasis. Transcribed Date/Time: 08/25/2018 10:56 AM
== END 2018-08-25 10:25 | disposition home or self-care (01) ==
LOC: RAD 07:36
PROVIDERS: ATTEND Neurological Surgery
PROC: B01B1ZZ Fluoroscopy of Spinal Cord using Low Osmolar Contrast (ICD-10-PCS; principal; 2018-08-25)
DX: M47.16 Other spondylosis with myelopathy, lumbar region (principal); M47.12 Other spondylosis with myelopathy, cervical region; M51.37 Other intervertebral disc degeneration, lumbosacral region; M48.07 Spinal stenosis, lumbosacral region; M48.02 Spinal stenosis, cervical region; N20.0 Calculus of kidney; I10 Essential (primary) hypertension; F17.200 Nicotine dependence, unspecified, uncomplicated; Z86.73 Personal history of transient ischemic attack (TIA), and cerebral infarction without residual deficits; Z79.82 Long term (current) use of aspirin; Z79.899 Other long term (current) drug therapy; Z88.8 Allergy status to other drugs, medicaments and biological substances; Z95.0 Presence of cardiac pacemaker
CPT/HCPCS: 62305; 72040; 72100; 72126; 72132

== ENCOUNTER 2019-07-11 06:27 | Observation (INO) | payer MEDICARE ==
[2019-07-11] MEDS ORDERED: Albuterol Sulfate 2.5 mg/3 ml Neb ONE (06:42)
[2019-07-11] MEDS ORDERED: Albuterol Sulfate 2.5 mg/0.5 ml Neb ONE ×2 (06:42)
[2019-07-11 07:00] LABS: #Basophils 0.1 thou/uL (0.0-0.2); #Eosinphils 0.3 thou/uL (0.0-0.7); #Lymphocytes 1.7 thou/uL (1.20-3.40); #Monocytes 0.5 thou/uL (0.11-0.59); #Neutrophils 2.1 thou/uL (1.40-6.50); %Basophils 1.2 % (0.0-1.0); %Eosinophils 6.5 % (0.0-10.0); %Lymphocytes 36.5 % (21.0-51.0); %Neutrophils 44.9 % (42.0-75.0); Hemoglobin 10.3 g/dL (14.0-18.0); Mean Corpuscular HGB CONC 29.7 g/dL (32.0-36.0); Mean Corpuscular Volume 70.5 fL (78.0-98.0); Mean Platelet Volume 9.8 fL (7.4-10.4); Platelet Count 208 thou/uL (130-400); RBC Distribution Width 15.8 % (11.5-14.5); Red Blood Cell (RBC) Count 4.93 mill/uL (4.70-6.10); White Blood Cell (WBC) Count 4.8 thou/uL (4.8-10.8)
[2019-07-11 07:19] LABS: ALT (SGPT) 11 U/L (8-55); AST (SGOT) 17 U/L (5-34); Albumin 3.8 g/dL (3.4-4.8); Alkaline Phosphatase 60 U/L (40-110); Anion Gap 9 mmol/L (10-20); BUN (Urea Nitrogen) 14 mg/dL (8.4-25.7); Bilirubin, Total 0.6 mg/dL (0.2-1.2); CK (CPK) 61 U/L (30-200); Calc. Creatinine Clearance 0 mL/min (70-130); Calcium 8.5 mg/dL (7.8-10.44); Carbon Dioxide 31 mmol/L (23-31); Chloride 102 mmol/L (98-107); Estimated GFR-MDRD 63; Globulin 2.8 g/dL (2.4-3.5); Glucose 85 mg/dL (80-115); Lipase 26 U/L (8-78); Magnesium 2.1 mg/dL (1.6-2.6); Protein, Total 6.6 g/dL (5.8-8.1); Sodium 139 mmol/L (136-145)
[2019-07-11 07:24] LABS: Hypochromia SLIGHT = 6-15 cells (100X) (0-5/hpf); MDiff Complete? YES; Microcytosis SLIGHT = 6-15 cells (100X) (0-5/hpf); Platelet Morphology Comment Appears Adequate; Polychromasia SLIGHT = 2-3 cells (100X) (0-2/hpf)
--- NOTE | 2019-07-11 07:44 | RAD ---
CHEST 1 VIEW: HISTORY: Chest pain. COMPARISON: 06/05/2018. FINDINGS: Left ICD. Heart size is normal. The lungs are clear. IMPRESSION: No significant acute intrathoracic disease. Stable from prior study. POS: [facility]
[2019-07-11 10:44] VITALS: BMI 31.2
[2019-07-11 11:19] LABS: Troponin I Less than 0.010 ng/mL (< 0.028)
[2019-07-11] MEDS ORDERED: Acetaminophen 325 MG TAB PO PRN (12:38)
[2019-07-11] MEDS ORDERED: HYDROcodone/Acetaminophen 7.5/325 mg Tablet PO PRN (12:41)
[2019-07-11] MEDS ORDERED: PROVENTIL INHALER 6.7 G (200 INHALATIONS) INH PRN (12:41)
[2019-07-11] MEDS: Heparin 5,000 UNITS/ML VIAL SC SCH ×2 (14:30→20:39)
[2019-07-11 14:55] LABS: Amphetamine Not Detected (NotDetected); Barbiturates Screen Not Detected (NotDetected); Benzodiazepine Screen Not Detected (NotDetected); Cocaine Metabolite Screen Not Detected (NotDetected); Medtox Control Line Valid? VALID (VALID); Medtox Reader # READER 4; Methadone Not Detected (NotDetected); Methamphetamine Not Detected (NotDetected); Opiate Screen Not Detected (NotDetected); Oxycodone Screen Not Detected (NotDetected); Phencyclidine (PCP) Not Detected (NotDetected); THC/Cannabinoid Screen Not Detected (NotDetected); Tricyclic Screen Not Detected (NotDetected)
[2019-07-11 15:51] LABS: Troponin I 0.016 ng/mL (< 0.028)
--- NOTE | 2019-07-11 19:07 | PDOC.HHP ---
Hospitalist HPI - History of Present Illness chest pain History of Present Illness: 63yo M w/ MHx of persistent atrial fibrillation and tachybrady syndrome s/p pacemaker placement (2015, recent exchange) presents with chest pain. Chest pain woke him up earlier this morning, lancinating-like, left thorax and around to left back, constant, not associated with activity and not relieved by rest. Had similar episodes in the past presentation and blames it on the pacemaker swelling up and causing the pain. Has no other complaints and denies fever, chills, night sweats, dyspnea, orthopnea, PND, trauma to chest or back, skin lesion or rashes, recent travel or sick contacts. ED Course: In the ED, received nitroglycerin (overall x 3) as well as initial ACS treatment and workup, and was admitted for further observation. Hospitalist ROS - Review of Systems Constitutional: denies: fever, chills, sweats, weakness, malaise, other Respiratory: reports: pleuritic pain. denies: cough, dry, shortness of breath, hemoptysis, SOB with excertion, sputum, wheezing, other Cardiovascular: reports: chest pain. denies: palpitations, orthopnea, paroxysmal noc. dyspnea, edema, light headedness Gastrointestinal: denies: nausea, vomiting, abdominal pain, diarrhea, constipation, melena, hematochezia Genitourinary: denies: dysuria, frequency, incontinence, hematuria, retention, other Musculoskeletal: reports: neck pain, shoulder pain, back pain Skin: denies: rash, lesions Neurological: denies: weakness, numbness, incoordination, change in speech, confusion - Medication Medications: Active Medications Generic Name Dose Route Start Last Admin Trade Name Freq PRN Reason Stop Dose Admin Heparin Sodium (Porcine) 5,000 units 07/11/19 15:00 07/11/19 14:30 Heparin SC Not Given TID [facility] Hospitalist History - Past Medical History Cardiac: reports: AFIB, HTN, Hyperlipidemia (PAST MEDICAL HISTORY: 1. History of atrial fibrillation. 2. Tachybrady syndrome, status post pacemaker in 2014. 3. Chronic back pain. 4. History of electrocution in the past. 5. Anxiety disorder. 6. Orthostatic hypertension. PAST SURGICAL HISTORY: 1. Pacemaker placement. 2. Back surgery. OUTPATIENT MEDICATIONS: Include: 1. Vicodin p.r.n. for pain. 2. Requip. 3. Clonazepam. 4. Meloxicam. 5. Aspirin 325 a day. 6. Metoprolol 100 mg a day.8. Florinef. 9. Albuterol inhaler. ALLERGIES: DIGOXIN. gabapentin (rash) SOCIAL HISTORY: No alcohol, tobacco or drugs. FAMILY HISTORY: Noncontributory.) - Exam General Appearance: awake alert, ill appearing General - other findings: appears erratic and agitated Eye: PERRL, anicteric sclera ENT: normocephalic atraumatic Neck: no JVD Heart: RRR, no murmur, no gallops, normal peripheral pulses Heart - other findings: left upper thorax pacemaker; no overlying erythema or apparent swelling Respiratory: CTAB, no wheezes, no rales, no ronchi, normal chest expansion, no tachypnea, normal percussion Gastrointestinal: soft, non-tender, non-distended, normal bowel sounds Extremities: no edema Neurological: cranial nerve grossly intact, no weakness, no focal deficits, no new deficit. negative: facial droop, hemiplegia, speech deficit Musculoskeletal: normal tone, normal strength Psychiatric: A&O x 3, flat affect. negative: normal behavior Psychiatric - other findings: agitated, erratic Hospitalist Results - Labs Result Diagrams: 07/11/19 06:46 07/11/19 06:46 Lab results: WBC 4.8 thou/uL (4.8-10.8) 07/11/19 06:46 Hgb 10.3 g/dL (14.0-18.0) L 07/11/19 06:46 Hct 34.7 % (42.0-52.0) L 07/11/19 06:46 MCV 70.5 fL (78.0-98.0) L 07/11/19 06:46 Plt Count 208 thou/uL (130-400) 07/11/19 06:46 Neutrophils % 44.9 % (42.0-75.0) 07/11/19 06:46 Sodium 139 mmol/L (136-145) 07/11/19 06:46 Potassium 3.0 mmol/L (3.5-5.1) L 07/11/19 06:46 Chloride 102 mmol/L (98-107) 07/11/19 06:46 Carbon Dioxide 31 mmol/L (23-31) 07/11/19 06:46 BUN 14 mg/dL (8.4-25.7) 07/11/19 06:46 Creatinine 1.17 mg/dL (0.7-1.3) 07/11/19 06:46 Glucose 85 mg/dL (80-115) 07/11/19 06:46 Calcium 8.5 mg/dL (7.8-10.44) 07/11/19 06:46 Total Bilirubin 0.6 mg/dL (0.2-1.2) 07/11/19 06:46 AST 17 U/L (5-34) 07/11/19 06:46 ALT 11 U/L (8-55) 07/11/19 06:46 Alkaline Phosphatase 60 U/L (40-110) 07/11/19 06:46 Creatine Kinase 61 U/L (30-200) 07/11/19 06:46 Troponin I 0.016 ng/mL (< 0.028) 07/11/19 13:16 Serum Total Protein 6.6 g/dL (5.8-8.1) 07/11/19 06:46 Albumin 3.8 g/dL (3.4-4.8) 07/11/19 06:46 Lipase 26 U/L (8-78) 07/11/19 06:46 - EKG Interpretation EKG: paced rhythm with no signs of acute ischemia Hospitalist H&P A/P - Problem (1) Neuropathic pain of chest Code(s): M79.2 - NEURALGIA AND NEURITIS, UNSPECIFIED Status: Acute (2) Tachy-dario syndrome Code(s): I49.5 - SICK SINUS SYNDROME Status: Acute (3) Atrial fibrillation Code(s): I48.91 - UNSPECIFIED ATRIAL FIBRILLATION Status: Chronic - Plan Plan: * pain reproducible, lancinating, more consistent with neuropathic rather than nociceptive pain * patient jumps off bed due to perceived severe tenderness in upper left thorax , upper left back, upper abdominal quadrant; yet appears to be in no pain when laying back over left upper back * no overlying skin lesion or rash; not dermatomal distribution and patient isn' t immunocompromised * may have had neuropathy as a result of insertion of pacemaker * start pregabalin (had rash in response to gabapentin, nurse requested to monitor though unknown if pregabalin and gabapentin cross react) * US left upper thorax for possible soft tissue abnormality in pacemaker area * continue home norco * for atrial fibrillation, resumed home medications * * full code * GI PPx : no Ix * DVT PPx: enoxeparin
[2019-07-11] MEDS ORDERED: Pregabalin 25 MG CAP PO SCH (19:15)
[2019-07-11] MEDS: Potassium Chloride 20 MEQ TAB PO SCH ×2 (20:35→23:31)
[2019-07-11] MEDS: Pregabalin 25 MG CAP PO SCH (20:36)
[2019-07-11] MEDS ORDERED: rOPINIRole HCl 1 MG TAB PO SCH (21:00)
[2019-07-11] MEDS ORDERED: Fludrocortisone Acetate 0.1 MG TAB PO SCH (21:00)
[2019-07-11] MEDS ORDERED: clonazePAM 1 MG TAB PO SCH (21:00)
[2019-07-11] MEDS ORDERED: Meloxicam 7.5 MG TAB PO SCH (21:00)
[2019-07-12 05:39] LABS: Anion Gap 8 mmol/L (10-20); BUN (Urea Nitrogen) 10 mg/dL (8.4-25.7); Calc. Creatinine Clearance 89 mL/min (70-130); Calcium 8.6 mg/dL (7.8-10.44); Carbon Dioxide 30 mmol/L (23-31); Chloride 104 mmol/L (98-107); Estimated GFR-MDRD 71; Glucose 87 mg/dL (80-115); Magnesium 2.1 mg/dL (1.6-2.6); Potassium 3.6 mmol/L (3.5-5.1); Sodium 138 mmol/L (136-145)
[2019-07-12 08:18] VITALS: BP 133/84; TEMP 97.9
--- NOTE | 2019-07-12 08:27 | ULT ---
SOFT TISSUE CHEST WALL ULTRASOUND: HISTORY: Stabbing pain at the site of the pacemaker. FINDINGS: Imaging was evaluated around the pacemaker site. There was no evidence for solid mass. No abnormal fluid collection. IMPRESSION: No abnormal fluid collection or solid mass in and around the region of the pacemaker site where the p atient complains of chest pain. Depending upon concern, additional imaging with CT scan might be con sidered. POS: [facility]
[2019-07-12] MEDS ORDERED: Aspirin 325 MG TAB PO SCH (09:00)
[2019-07-12] MEDS: Heparin 5,000 UNITS/ML VIAL SC SCH (09:02)
[2019-07-12] MEDS: Pregabalin 25 MG CAP PO SCH (10:20)
--- NOTE | 2019-07-13 21:09 | DIS ---
DATE OF ADMISSION: 07/11/2019 DATE OF DISCHARGE: 07/12/2019 HISTORY OF PRESENT ILLNESS: Mr. Capps is a 63-year-old male with a medical history of persistent atrial fibrillation and tachy-dario syndrome status post pacemaker placement with pacemaker placement in 2014 with a recent exchange, who presented with chest pain. He was diagnosed with neuropathic pain, likely due to the surgical insertion of the pacemaker and was started on pregabalin overnight. His pain completely resolved. He was discharged home with pregabalin as well as followup appointment with his primary care physician. On the day of discharge, he was hemodynamically stable and feeling well. PHYSICAL EXAMINATION: GENERAL: He was in no apparent distress. Alert and oriented x3, whereas during presentation here apppeared erratic and agitated. EYE: Pale, anicteric sclera. HEART: Regular rate and rhythm. No murmur. No gallops. Normal peripheral pulses. Left upper thorax pacemaker with no overlying erythema or apparent swelling. RESPIRATORY: Clear to auscultation bilaterally. No wheezes, no rales, no rhonchi. Normal chest expansion. No tachypnea. GASTROINTESTINAL: Soft, nontender, nondistended. Normal bowel sounds. EXTREMITIES: No edema. NEUROLOGICAL: Cranial nerves grossly intact. No weakness. No focal deficits. No new deficits. MUSCULOSKELETAL: Normal tone and strength. PSYCHIATRIC: Alert and oriented x3. Proper mood and affect. ASSESSMENT AND PLAN: Mr. Capps is a 63-year-old male who presented with neuropathic pain that he would currently have. Despite having an allergy to gabapentin, concerning there is no evidence of cross-reactivity, was started on pregabalin. The patient's pain completely resolved the day following presentation and he was discharged home. During the stay, an ultrasound of the upper thorax was also taken and was unremarkable for soft tissue infection or other findings. He was discharged home after the addition of pregabalin and with an outpatient appointment with his primary care physician. Job ID: [id number]
== END 2019-07-12 12:45 | disposition home or self-care (01) ==
LOC: ERS 06:27 → 2SW 10:37
PROVIDERS: ADMIT Internal Medicine; ATTEND Internal Medicine
DX: M79.2 Neuralgia and neuritis, unspecified (principal); I48.19 Other persistent atrial fibrillation; I49.5 Sick sinus syndrome; I10 Essential (primary) hypertension; E78.5 Hyperlipidemia, unspecified; G89.29 Other chronic pain; M54.9 Dorsalgia, unspecified; F41.9 Anxiety disorder, unspecified; Z79.1 Long term (current) use of non-steroidal anti-inflammatories (NSAID); Z79.82 Long term (current) use of aspirin; Z79.899 Other long term (current) drug therapy; Z88.8 Allergy status to other drugs, medicaments and biological substances; Z95.0 Presence of cardiac pacemaker
CPT/HCPCS: 71045; 76604; 80048; 80053; 80306; 82550; 83690; 83735 ×2; 84484 ×2; 85025; 93005; 97139; 99285; G0378 ×3; 36415; J7611

== ENCOUNTER 2025-05-14 17:10 | Emergency (ER) | payer MEDICARE ==
[2025-05-14 17:33] LABS: #Basophils 0.06 10x3/uL (0.0-0.2); #Eosinophils 0.23 10x3/uL (0.0-0.7); #Monocytes 0.62 10x3/uL (0.11-0.59); #Neutrophils 2.87 10x3/uL (1.40-6.50); %Basophils 1.1 % (0.0-1.0); %Eosinophils 4.3 % (0.0-10.0); %Lymphocytes 28.8 % (21.0-51.0); %Monocytes 11.7 % (0.0-10.0); %Neutrophils 53.9 % (42.0-75.0); Hematocrit 37.4 % (42.0-52.0); Hemoglobin 10.3 g/dL (14.0-18.0); Mean Corpuscular Hemoglobin 19.1 pg (27.0-31.0); Mean Corpuscular Volume 69.5 fL (78.0-98.0); Platelet Count 247 10x3/uL (130-400); Red Blood Cell (RBC) Count 5.38 mill/uL (4.70-6.10); White Blood Cell (WBC) Count 5.32 10x3/uL (4.8-10.8)
[2025-05-14 17:47] LABS: ALT (SGPT) 12 U/L (Less than 45); AST (SGOT) 23 U/L (11-34); Albumin 4.0 g/dL (3.1-4.5); Alkaline Phosphatase 52 U/L (40-110); Anion Gap 11 mmol/L (10-20); BUN (Urea Nitrogen) 14 mg/dL (8.4-25.7); Bilirubin, Total 0.5 mg/dL (0.3-1.2); Calc. Creatinine Clearance 0 mL/min (70-130); Calcium 9.7 mg/dL (7.8-10.44); Carbon Dioxide 26 mmol/L (23-31); Chloride 102 mmol/L (98-107); Globulin 3.5 g/dL (2.4-3.5); Glucose 85 mg/dL (80-115); Potassium 4.4 mmol/L (3.5-5.1); Sodium 135 mmol/L (136-145)
[2025-05-14 18:07] LABS: Magnesium 2.2 mg/dL (1.6-2.6)
[2025-05-14 18:10] LABS: INR-International Normal Ratio 1.1; Prothrombin Time 14.5 sec (12.0-14.7)
[2025-05-14 18:11] LABS: PTT 32.1 sec (22.9-36.1)
[2025-05-14 18:13] LABS: Bacteria/HPF None Seen HPF (None Seen); CAUTI Indications for Culture Dysuria,urgency,freq; Glucose, Urine (Dipstick) Normal (Negative); Leukocyte Negative Leu/uL (Negative); Protein, Urine (Dipstick) Negative (Neg-Trace); RBC/HPF None Seen HPF (0-3); Specific Gravity, Urine 1.006 (1.002-1.036); WBC/HPF 0-3 HPF (0-3)
[2025-05-14 18:15] LABS: Urine Culture Reflex No No
[2025-05-14 18:20] LABS: Cocaine Metabolite Screen Negative (Negative); THC/Cannabinoid Screen Negative (Negative); Tricyclic Screen Negative (Negative)
[2025-05-14] MEDS ORDERED: Ondansetron PF 4 MG/2 ML Vial ONE (19:21)
== END 2025-05-14 21:02 | disposition home or self-care (01) ==
LOC: ERS 17:10
DX: R07.89 Other chest pain (principal); R00.2 Palpitations; F17.220 Nicotine dependence, chewing tobacco, uncomplicated; Z95.0 Presence of cardiac pacemaker
CPT/HCPCS: 71045; 80053; 80306; 81001; 83735; 84484; 85025; 85610; 85730; 93005; 94760; J2405; 96374